=== PATIENT | male | born 1965 | race Caucasian/White ===

== ENCOUNTER → 2019-04-20 | Outpatient (CLI) | payer OTHER ==
--- NOTE | 2019-04-20 16:53 | PCVCIMAG ---
APPROVED REPORT Study performed: 04/20/2019 14:22:53 Exam: Stress Echocardiogram Ht: 5 ft 9 in Medical History Medical History: Smoking,alcohol, mitral valve prolapse Cardiac Risk Factors: Tobacco History (Current/Recent) Previous Cardiac Procedures: none Pretest Chest Pain Characteristics: No chest pain Exercise History: Indeterminate Procedure The patient underwent an Exercise Stress Test using the Shen Protocol. Blood pressure, heart rate, and EKG were monitored. An Echocardiogram was performed by hydro plant technician in four stages in quad fashion. At peak stress, four selected images were obtained and placed side by side with resting images for comparison. Stress Test Details Stress Test: Exercise stress testing was performed using a Shen protocol. HR Resting HR: 68 bpmMax Heart Rate (APMHR): 165 bpm Max HR Achieved: 169 bpmTarget HR (85% APMHR): 140 bpm % of APMHR: 102 Recovery HR: 92 bpm HR response to stress: Normal HR response to stress BP Resting BP: 132/78 mmHg Max BP: 162/78 mmHg Recovery BP: 142/62 mmHg BP response to stress: Normal blood pressure response to stress. ECG Resting ECG: Sinus Rhythm Stress ECG: Sinus Rhythm, NSSTT changes ST Change: Non-ischemic Maximum ST Deviation: -1.1 mm Arrhythmia: Rare PVC Recovery ECG: Sinus Rhythm Recovery ST Change: Non-ischemic Recovery Arrhythmia: None Clinical Reason for Termination: Maximal effort Stress Symptoms: none Exercise duration: 9 min 00 sec Highest Stage Achieved: Stage 3: 3.4 mph at 14% grade. Exercise capacity: 10.1 METs Overall Exercise Capacity for Age: Average Scale: Sedentary Angina Score: None No complications. Stress ECG Conclusion The patient exercised according to the SHEN protocol for 9:00 mins; achieving a work level of 10.1 METS. The resting heart rate of 68 bpm bruce to a maximum heart rate of 169 bpm. This value represent 102% of the maximal, age-predicted heart rate. The resting blood pressure of 132/78 mmHg, bruce to a maximum blood pressure of 162/78 mmHg. The exercise test was stopped due to fatigue. Austin Treadmill Score is 14.5 which is Low risk. Pre-Stress Echo The resting Echocardiogram showed normal left ventricular contractility with an estimated Ejection Fraction of about 55-60%. Normal wall motion in all segments on baseline images. Post-Stress Echo The stress Echocardiogram showed normal left ventricular contractility with an estimated Ejection Fraction of about 65-70%. Normal augmentation of wall motion in all segments on post stress images. Clinical No clinical or ECG evidence for ischemia. Conclusion Clinical Response: Non-ischemic Exercise Capacity: Average Stress ECG Response: Non-ischemic Stress Echo Images: Non-ischemic No clinical, EKG or echocardiographic evidence for ischemia. No echocardiographic evidence for exercise induced ischemia. Normal stress echocardiogram with maximal exercise stress. <Conclusion> No clinical, EKG or echocardiographic evidence for ischemia. No echocardiographic evidence for exercise induced ischemia. Normal stress echocardiogram with maximal exercise stress.
== END | disposition home or self-care (01) ==
LOC: PCVCIMAG 14:14
PROVIDERS: ATTEND Internal Medicine Cardiovascular Disease
DX: I34.1 Nonrheumatic mitral (valve) prolapse (principal); I10 Essential (primary) hypertension; E78.5 Hyperlipidemia, unspecified; F17.200 Nicotine dependence, unspecified, uncomplicated; F10.10 Alcohol abuse, uncomplicated
CPT/HCPCS: 93325; 93351